=== PATIENT | male | born 1980 | race Two or more races ===

== ENCOUNTER 2025-04-10 17:53 | Emergency (ER) | payer OTHER ==
[~2025-04-10] VITALS: Ht 175.3 cm; Wt 80.7 kg
[2025-04-10 18:36] LABS: PLATELET COUNT (AUTO) 434 K/uL (150-450); RED BLOOD CELL COUNT(AUTO) 4.22 MIL/uL (4.5-6.0); RED CELL DISTRIBUTION WIDTH 14.0 % (11.5-15.0); WHITE BLOOD COUNT (AUTO) 7.1 K/uL (4.3-11.0)
[2025-04-10 18:44] LABS: CALCIUM, SERUM 9.0 mg/dL (8.5-10.1); CREATININE 1.1 mg/dL (0.6-1.3); SODIUM SERUM 137 mmol/L (136-145); UREA NITROGEN, BLOOD 20 mg/dL (7-18)
[2025-04-10 18:46] LABS: ALCOHOL, BLOOD < 3 mg/dL (0-10)
[2025-04-10] MEDS: LEVETIRACETAM (500MG) 1,000 MG in IV NS 0.9% 90 ML IV SCH (19:00)
[2025-04-10 19:29] VITALS: BP 132/86; TEMP 98.4; O2SAT 99
[2025-04-10 19:57] LABS: AMPHETAMINE, URINE NEGATIVE (NEGATIVE); BARBITURATE, URINE NEGATIVE (NEGATIVE); BENZODIAZEPINE, URINE NEGATIVE (NEGATIVE); CANNABINOID, URINE NEGATIVE (NEGATIVE); COCCAINE, URINE NEGATIVE (NEGATIVE); OPIATE, URINE NEGATIVE (NEGATIVE)
== END 2025-04-10 19:30 | disposition home or self-care (01) ==
LOC: ER 18:03
DX: G40.909 Epilepsy, unspecified, not intractable, without status epilepticus (principal); F41.9 Anxiety disorder, unspecified
CPT/HCPCS: 99284; 96365; 93005; 85025; 80048; 36415; 80320; 80307; J7030; J1953; G0480